=== PATIENT | female | born 1940 | race Caucasian/White ===

== ENCOUNTER 2019-01-29 11:24 | Emergency (ER) | payer MEDICARE, BC, SELFPAY ==
[2019-01-29 11:29] VITALS: PULSE 98; RESP 16; TEMP 36.7; O2SAT 100
--- NOTE | 2019-01-29 11:30 | ED.GENADUL_ITS ---
Discharge Plan Disposition Patient Disposition: HOME Condition: Good Discharge Details Chief Complaint: GenMedical Clinical Impression: Impetigo, Skin irritation [facility] Care Provider: [facility] Provider: Ray Navarrete Home Meds and New Rx's Prescriptions: No Action valacyclovir 1 gram Tablet 1,000 mg PO DAILY RF: 0 furosemide [Lasix] 20 mg Tablet 20 mg PO DAILY RF: 0 pravastatin 10 mg Tablet 10 mg PO DAILY RF: 0 Discharge Instructions Instructions: Impetigo (ED) Additional Instructions: At this time it appears that you have impetigo on the right side of your lips. Please apply the ointment 3 times daily as directed. Please do not pick at or touch your lips. If you notice any worsening of your symptoms, or any new symptoms such as lesions in your gums, or inside your mouth, vomiting, diarrhea, fever, chills, shortness of breath, chest pain, numbness, weakness, or fainting , please return immediately to the emergency department for reevaluation. Please follow up with your primary care provider as soon as possible for reassessment and reevaluation. As always, it was a pleasure participating in your medical care today. Medical Decision Making This is a pleasant 78-year-old female who is on chronic valacyclovir for a lesion on the right. She presents today for atypical yellow honeydew crusting on the lateral aspect of her right upper and lower lips. Patient 1 month ago did have evidence of some mild swelling on her lips, this is resolved completely on its own after short course of prednisone. Yesterday she noticed small lesions on her lips which she described as small white vesicles, these have resolved, and then this morning she noticed some mild crusting on the lateral aspect on the right side of her lips. No lesions in the mouth, or on the gingiva or significant mucosal regions. No facial lesions. No evidence of Johnson's palsy. Signs and symptoms at this time appear clinically consistent with mild impetigo. Will recommend mupirocin ointment which will be given here. Discussed red flags which to return, as well as the importance of avoiding any chemicals on this area, picking with the fingers, and red flags which to immediately return. I have extensively reviewed the treatment plan and discharge instructions with the patient. I have addressed all patient concerns at this time. The patient was made aware of what symptoms to monitor for that would warrant a return to the emergency department. Discussed the plan with the patient, they demonstrate verbal understanding and agreement with our assessment and plan at this time. HPI General Date/Time Provider Initiated Documentation: 01/29/19 11:30 . HPI Narrative: This is an 78-year-old female who presents today for evaluation of lesions on her right upper and lower lips. 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 1 month ago she refilled her valacyclovir and it transitioned from white pills, with new pills with blue dye. When she received though she noticed some swelling and blisters of her lips, she was treated with prednisone and this led to complete resolution of her symptoms over 3 weeks ago. Yesterday she noticed mild swelling and small white blisters on the lateral aspect of her upper and lower lips bilaterally, they did not rupture, or have any discharge. She did pick at them significantly though. This morning she noticed that there was some mild shadowing of the superficial layer on the right side of her lips, as well as some crusty yellow changes. The blisters had otherwise completely resolved. The swelling had completely resolved. She denies any pain, tingling, weakness. She denies any new medications. She is not on any seizure medicines. She is not on an AVERY or an arb. She denies any recent contact irritation to chemicals or new lipsticks. The patient denies any other complaints at this time. No other modifying factors. She denies any symptoms of burning. Related Data Home Medications Medication Instructions Recorded Confirmed furosemide [Lasix] 20 mg PO DAILY 01/29/19 01/29/19 pravastatin 10 mg PO DAILY 01/29/19 01/29/19 valacyclovir 1,000 mg PO DAILY 01/29/19 01/29/19 Allergies Allergy/AdvReac Type Severity Reaction Status Date / Time mold Allergy Unverified 01/29/19 11:34 Review of Systems Review of Systems All systems reviewed & are unremarkable except as noted in HPI and below PFSH Social History Smoking/Tobacco Use Status: Never Substance use type: does not use Do you feel safe at home: Yes Exam Narrative Exam Narrative: 1.Const: Well-nourished, Well-developed, appearing stated age 2.Eyes: PERRL, no conjunctival injection, and symmetrical lids. 3.ENT: Atraumatic external nose and ears. Moist MM. Neck: Symmetric, trachea midline, No thyromegaly. No lesions on the inside of the mouth, no vesicles or ulcers on the inside of the mouth. Lips demonstrate no significant vessels, vesicles, or edema. No ulcerations on the lips, no fissuring of the lips. There is a small amount of yellow/honey colored crusting on the lateral aspects of the lips. Mild geographic tongue. No evidence of facial lesions otherwise, no evidence of lesions in the distribution of the cheek, eye, or temporal region. 4.CVS: +S1/S2, No murmurs or gallops. Peripheral pulses 2+ and equal in all extremities. Brisk capillary refill in all extremities. 5.RESP: Unlabored respiratory effort. Clear to auscultation bilaterally. No wheezes rales or rhonchi 6.GI: Soft, Nontender/Nondistended, No hepatosplenomegaly. No guarding or rebound. 7.MSK: Normocephalic/Atraumatic, Extremities w/o deformity or ttp No cyanosis or clubbing, Normal movement of all extremities 8.Skin: Warm, Dry. No rashes or lesions. Negative Nikolsky sign. No large vesicles or bulla. No palpable purpura. No oral lesions. No mucosal lesions as the lesions are primarily on the external component of the lip.. No evidence of severe cellulitis. No evidence of vaccine preventable rash. 9.Neuro: bird sitter II-XII grossly intact. Sensation grossly intact, no focal ne urologic deficits. 10.Psych: (AAO) x3. Appropriate mood and affect
[2019-01-29 11:49] VITALS: BP 132/80
--- NOTE | 2019-01-29 11:55 | NUR.NOTE ---
Nursing Note: call out to pharmacy for medicated ointment, states that they are bringing it
[2019-01-29 12:08] VITALS: RESP 15
== END 2019-01-29 12:12 | disposition home or self-care (01) ==
PROVIDERS: Emergency Provider Student in an Organized Health Care Education/Training Program
DX: L01.00 Impetigo, unspecified (principal)
CPT/HCPCS: 99283